=== PATIENT | female | born 1990 | race Caucasian/White ===

== ENCOUNTER 2019-12-05 02:25 | Inpatient (IN) | payer MEDICAID ==
[~2019-12-05] VITALS: Ht 165.1 cm; Wt 88.0 kg
[2019-12-05] MEDS ORDERED: LR 1,000 ML IV ONE (04:28)
[2019-12-05] MEDS ORDERED: TERBUTALINE SULFATE 1 MG/ML VIAL SUBCUT ONE ×2 (04:30→04:45)
[2019-12-05] MEDS ORDERED: OXYTOCIN/0.9 % SODIUM CHLORIDE 1,000 ML IV SCH (04:32)
[2019-12-05 04:44] LABS: BILIRUBIN,URINE NEGATIVE (NEGATIVE); BLOOD, URINE 2+ (NEGATIVE); CLARITY/URINE CLEAR (CLEAR); COLOR,URINE YELLOW (YELLOW); GLUCOSE,URINE NEGATIVE (NEGATIVE); KETONES,URINE NEGATIVE (NEGATIVE); LEUKOCYTE ESTERASE ,URINE 3+ (NEGATIVE); NITRITE, URINE NEGATIVE (NEGATIVE); PROTEIN URINE NEGATIVE (NEGATIVE); UROBILINOGEN,URINE 0.2 (0.2-1.0)
[2019-12-05 04:46] VITALS: BP_SYST 131
[2019-12-05 04:48] LABS: BASOPHILS % (AUTO) 0.4 % (0.0-2.0); EOSINOPHILS % (AUTO) 0.2 % (0.0-4.0); HEMOGLOBIN 12.6 g/dL (12.0-16.0); LYMPHOCYTES # (AUTO) 0.8 K/uL (1.0-5.5); LYMPHOCYTES % (AUTO) 9.4 % (20.5-51.5); MEAN CORPUSCULAR HEMOGLOBIN 28 pg (27-31); MEAN CORPUSCULAR HGB CONC 32 % (32-36); MEAN CORPUSCULAR VOLUME 87 fL (79.0-98.0); MONOCYTES # (AUTO) 0.7 K/uL (0.0-1.0); MONOCYTES % (AUTO) 7.5 % (1.7-9.3); NEUTROPHILS # (AUTO) 7.4 K/uL (1.8-7.7); NEUTROPHILS % (AUTO) 82.5 % (40.0-70.0); PLATELET COUNT (AUTO) 228 K/uL (130-430); RED CELL DISTRIBUTION WIDTH 20.1 % (9.0-15.0)
[2019-12-05 04:51] VITALS: BP_SYST 131
[2019-12-05 05:00] LABS: BACTERIA,URINE MODERATE /HPF (None Seen); WBC,URINE 20-50 /HPF (0-3)
[2019-12-05] MEDS ORDERED: MEPERIDINE HCL/PF 25 MG/ML DISP.SYRIN IVP PRN (05:30)
[2019-12-05] MEDS: LR 1,000 ML IV SCH ×2 (05:35→07:50)
[2019-12-05] MEDS ORDERED: fentaNYL CITRATE/PF 100 MCG/2 ML AMP ONE (06:26)
[2019-12-05] MEDS ORDERED: ROPIVACAINE HCL/PF 0.2% 200 ML ONE (06:26)
[2019-12-05] MEDS ORDERED: LR 500 ML IV ONE (07:27)
[2019-12-05] MEDS ORDERED: FENT2mCg/mL-ROPIVA0.2%/NS EPID 200 ML EP SCH (07:30)
[2019-12-05] MEDS ORDERED: OXYTOCIN/0.9 % SODIUM CHLORIDE 1,000 ML IV ONE (08:50)
[2019-12-05] MEDS ORDERED: DERMOPLAST SPRAY TP PRN (09:00)
[2019-12-05] MEDS ORDERED: WITCH HAZEL LEAF 1 MED.PAD MED.PAD TP PRN (09:00)
[2019-12-05] MEDS: OXYCODONE/ACETAMINOPHEN 5-325 TABLET PO PRN ×3 (11:10→22:10)
[2019-12-05] MEDS ORDERED: OXYCODONE/ACETAMINOPHEN 5-325 TABLET PO PRN (11:15)
[2019-12-05] MEDS ORDERED: OXYCODONE/ACETAMINOPHEN 5-325 TABLET ONE (11:21)
[2019-12-05] MEDS: IBUPROFEN 600 MG TABLET PO SCH ×2 (12:07→18:19)
[2019-12-05] MEDS: DOCUSATE SODIUM 100 MG CAPSULE PO PRN (22:12)
[2019-12-06] MEDS: IBUPROFEN 600 MG TABLET PO SCH ×4 (00:11→17:37)
[2019-12-06 06:27] LABS: BASOPHILS % (AUTO) 0.2 % (0.0-2.0); EOSINOPHILS % (AUTO) 0.4 % (0.0-4.0); HEMATOCRIT 32.1 % (36-48); HEMOGLOBIN 10.6 g/dL (12.0-16.0); LYMPHOCYTES # (AUTO) 0.7 K/uL (1.0-5.5); LYMPHOCYTES % (AUTO) 11.1 % (20.5-51.5); MEAN CORPUSCULAR HEMOGLOBIN 29 pg (27-31); MEAN CORPUSCULAR HGB CONC 33 % (32-36); MEAN CORPUSCULAR VOLUME 88 fL (79.0-98.0); MONOCYTES # (AUTO) 0.5 K/uL (0.0-1.0); MONOCYTES % (AUTO) 8.8 % (1.7-9.3); NEUTROPHILS # (AUTO) 4.9 K/uL (1.8-7.7); NEUTROPHILS % (AUTO) 79.5 % (40.0-70.0); PLATELET COUNT (AUTO) 158 K/uL (130-430); RED BLOOD CELL COUNT(AUTO) 3.66 MIL/uL (4.2-6.2); RED CELL DISTRIBUTION WIDTH 20.5 % (9.0-15.0); WHITE BLOOD COUNT (AUTO) 6.1 K/uL (4.8-10.8)
[2019-12-06] MEDS ORDERED: AZITHROMYCIN 250 MG TABLET PO ONE (07:30)
[2019-12-06] MEDS ORDERED: MINERAL OIL 30 ML UDC PO ONE (07:45)
[2019-12-06] MEDS: OXYCODONE/ACETAMINOPHEN 5-325 TABLET PO PRN ×3 (07:50→20:11)
[2019-12-06] MEDS: BENZONATATE 100 MG CAPSULE (TESSALON) PO SCH ×3 (07:58→20:11)
[2019-12-06] MEDS: DOCUSATE SODIUM 100 MG CAPSULE PO PRN ×2 (12:08→20:11)
[2019-12-07] MEDS: OXYCODONE/ACETAMINOPHEN 5-325 TABLET PO PRN ×2 (05:04→13:30)
[2019-12-07] MEDS: BENZONATATE 100 MG CAPSULE (TESSALON) PO SCH ×2 (05:05→12:10)
[2019-12-07] MEDS: IBUPROFEN 600 MG TABLET PO SCH ×3 (05:06→12:10)
[2019-12-07] MEDS ORDERED: DIPH-TET-PERTUS Vaccine 0.5 ML VIAL (ADACEL) I.M. PRN (14:00)
[2019-12-07] MEDS ORDERED: MEASLES,MUMPS&RUBELLA VACC/PF 12500 UNIT/0.5 ML VIAL SUBQ PRN (14:00)
== END 2019-12-07 14:30 | disposition home or self-care (01) | DRG 560 ==
LOC: SPU 02:25
PROVIDERS: ADMIT Obstetrics & Gynecology; ATTEND Obstetrics & Gynecology
PROC: 10E0XZZ Delivery of Products of Conception, External Approach (ICD-10-PCS; principal; 2019-12-05)
PROC: 3E0R3BZ Introduction of Anesthetic Agent into Spinal Canal, Percutaneous Approach (ICD-10-PCS; 2019-12-05)
PROC: 00HU33Z Insertion of Infusion Device into Spinal Canal, Percutaneous Approach (ICD-10-PCS; 2019-12-05)
PROC: 10907ZC Drainage of Amniotic Fluid, Therapeutic from Products of Conception, Via Natural or Artificial Opening (ICD-10-PCS; 2019-12-05)
PROC: 0HQ9XZZ Repair Perineum Skin, External Approach (ICD-10-PCS; 2019-12-05)
DX: O70.0 First degree perineal laceration during delivery (principal); O71.82 Other specified trauma to perineum and vulva; Z37.0 Single live birth; Z3A.38 38 weeks gestation of pregnancy
CPT/HCPCS: 36415; 81000-TC; 85025; 86592; 86886; 86900; 86901; 87536; 90715; J2175; J3010; J7120; Q0144

== ENCOUNTER 2020-11-10 21:15 | Observation (INO) | payer OTHER | END 2020-11-10 23:11 | disposition home or self-care (01) | LOC: SPU 21:15 | PROVIDERS: ADMIT Obstetrics & Gynecology; ATTEND Obstetrics & Gynecology | DX: O26.893 Other specified pregnancy related conditions, third trimester (principal); R20.2 Paresthesia of skin; R42 Dizziness and giddiness; R10.30 Lower abdominal pain, unspecified; Z3A.36 36 weeks gestation of pregnancy | CPT/HCPCS: 81002; 87086; G0378 ==

== ENCOUNTER 2020-11-30 07:48 | Inpatient (IN) | payer OTHER, SELFPAY ==
[~2020-11-30] VITALS: Ht 162.6 cm; Wt 89.4 kg
[2020-11-30] MEDS ORDERED: TERBUTALINE SULFATE 1 MG/ML VIAL SUBCUT ONE (23:00)
[2020-11-30] MEDS ORDERED: NALBUPHINE HCL 10 MG/ML AMP IVP PRN (23:00)
[2020-11-30] MEDS ORDERED: DINOPROSTONE 10 MG SUPP VG ONE (23:00)
[2020-11-30 23:26] LABS: EOSINOPHILS % (AUTO) 0.4 % (0.0-4.0); HEMOGLOBIN 13.6 g/dL (12.0-16.0); LYMPHOCYTES # (AUTO) 1.6 K/uL (1.0-5.5); MONOCYTES # (AUTO) 0.6 K/uL (0.0-1.0)
[2020-11-30] MEDS ORDERED: OXYTOCIN/0.9 % SODIUM CHLORIDE 1,000 ML IV SCH (23:30)
[2020-11-30 23:31] VITALS: BP_SYST 107
[2020-11-30 23:32] LABS: BASOPHILS % (AUTO) 0.3 % (0.0-2.0); HEMATOCRIT 39.9 % (36-48); LYMPHOCYTES % (AUTO) 18.6 % (20.5-51.5); MEAN CORPUSCULAR HEMOGLOBIN 31 pg (27-31); MEAN CORPUSCULAR HGB CONC 34 % (32-36); MEAN CORPUSCULAR VOLUME 91 fL (79.0-98.0); MONOCYTES % (AUTO) 7.3 % (1.7-9.3); NEUTROPHILS # (AUTO) 6.4 K/uL (1.8-7.7); NEUTROPHILS % (AUTO) 73.4 % (40.0-70.0); PLATELET COUNT (AUTO) 239 K/uL (130-430); WHITE BLOOD COUNT (AUTO) 8.7 K/uL (4.8-10.8)
[2020-12-01] MEDS ORDERED: fentaNYL CITRATE/PF 100 MCG/2 ML AMP ONE (02:49)
[2020-12-01] MEDS ORDERED: ROPIVACAINE HCL/PF 0.2% 200 ML ONE (02:50)
[2020-12-01] MEDS: LR 1,000 ML IV SCH ×2 (03:35)
[2020-12-01] MEDS ORDERED: NALOXONE HCL 0.4 MG/ML AMP (NARCAN) IVP PRN (04:00)
[2020-12-01] MEDS ORDERED: FENT2mCg/mL-ROPIVA0.2%/NS EPID 200 ML EP SCH (04:00)
[2020-12-01] MEDS ORDERED: ONDANSETRON HCL 4 MG/2 ML VIAL IVP PRN (04:00)
[2020-12-01] MEDS ORDERED: DIPHENHYDRAMINE INJ 50 MG/ML VIAL IVP PRN (04:00)
[2020-12-01] MEDS ORDERED: OXYTOCIN/0.9 % SODIUM CHLORIDE 1,000 ML IV SCH (07:30)
[2020-12-01] MEDS ORDERED: DIPH-TET-PERTUS Vaccine 0.5 ML VIAL (ADACEL) I.M. PRN (07:30)
[2020-12-01] MEDS ORDERED: MEASLES,MUMPS&RUBELLA VACC/PF 12500 UNIT/0.5 ML VIAL SUBQ PRN (07:30)
[2020-12-01] MEDS ORDERED: HYDROCORTISONE 0.5%, 28.35 GM TOPICAL CREAM TP PRN (07:30)
[2020-12-01] MEDS ORDERED: LANOLIN 7 GM OINT. TP PRN (07:30)
[2020-12-01] MEDS ORDERED: WITCH HAZEL LEAF 1 MED.PAD MED.PAD TP PRN (07:30)
[2020-12-01] MEDS ORDERED: RHO(D) IMMUNE GLOBULIN/MALTOSE 1500 UNITS/1.3 ML (WINHRO) IM PRN (07:30)
[2020-12-01] MEDS ORDERED: OXYTOCIN/0.9 % SODIUM CHLORIDE 1,000 ML IV ONE (07:30)
[2020-12-01] MEDS ORDERED: DERMOPLAST SPRAY TP PRN (07:30)
[2020-12-01] MEDS ORDERED: ANUSOL 1 EA SUPP.RECT (PREPARATION H) RC PRN (07:30)
[2020-12-01] MEDS ORDERED: TEMAZEPAM 15 MG CAPSULE PO PRN (07:30)
[2020-12-01] MEDS ORDERED: SENNOSIDES/DOCUSATE SODIUM 1 TAB TABLET(SENOKOT-S) PO PRN (07:30)
[2020-12-01] MEDS ORDERED: HYDROcodone/ACETAMIN 5-325 MG TAB (NORCO/ VICODIN) PO PRN (10:00)
[2020-12-01] MEDS ORDERED: OXYCODONE/ACETAMINOPHEN 5-325 TABLET PO PRN (10:00)
[2020-12-01] MEDS: OXYCODONE/ACETAMINOPHEN 5-325 TABLET PO PRN ×4 (10:05→20:03)
[2020-12-01] MEDS: IBUPROFEN 600 MG TABLET PO SCH ×2 (12:06→18:15)
[2020-12-01] MEDS: DOCUSATE SODIUM 100 MG CAPSULE PO PRN (15:27)
[2020-12-02] MEDS: IBUPROFEN 600 MG TABLET PO SCH ×3 (00:02→12:06)
[2020-12-02] MEDS: DOCUSATE SODIUM 100 MG CAPSULE PO PRN ×2 (05:54→09:39)
[2020-12-02 06:44] LABS: HEMATOCRIT 37.7 % (36-48); HEMOGLOBIN 12.9 g/dL (12.0-16.0)
[2020-12-02] MEDS: OXYCODONE/ACETAMINOPHEN 5-325 TABLET PO PRN (07:45)
[2020-12-02] MEDS ORDERED: FLU VACC QS2020-21 (6 mos & up) 0.5 ML/SYRINGE I.M. PRN (12:45)
== END 2020-12-02 13:05 | disposition home or self-care (01) | DRG 560 ==
LOC: SPU 22:20
PROVIDERS: ADMIT Obstetrics & Gynecology; ATTEND Obstetrics & Gynecology
PROC: 10E0XZZ Delivery of Products of Conception, External Approach (ICD-10-PCS; principal; 2020-12-01)
PROC: 3E033VJ Introduction of Other Hormone into Peripheral Vein, Percutaneous Approach (ICD-10-PCS; 2020-12-01)
PROC: 3E0R3BZ Introduction of Anesthetic Agent into Spinal Canal, Percutaneous Approach (ICD-10-PCS; 2020-12-01)
PROC: 00HU33Z Insertion of Infusion Device into Spinal Canal, Percutaneous Approach (ICD-10-PCS; 2020-12-01)
DX: O99.214 Obesity complicating childbirth (principal); E66.01 Morbid (severe) obesity due to excess calories; Z3A.38 38 weeks gestation of pregnancy; Z37.0 Single live birth; Z20.822 Contact with and (suspected) exposure to COVID-19
CPT/HCPCS: 36415; 85018-TC; 85025; 86592; 86886; 86900; 86901; J2300; J2405; J2590; J3010; J7120; U0003